=== PATIENT | female | born 1980 | race African-American/Black ===

== ENCOUNTER 2018-07-18 06:13 | Emergency (ER) | payer OTHER ==
--- NOTE | 2018-07-18 06:39 | ED Physician Documentation ---
PD HPI ABD PAIN - Stated complaint Stated Complaint: ABD CRAMPING/NAUSEA/VOMITING - Chief complaint Chief Complaint: Abd Pain - History obtained from History obtained from: Patient - History of Present Illness Timing - onset: Yesterday Timing - details: Abrupt onset, Waxing and waning, Still present in ED Pain level max: 10 Pain level now: 10 Quality: Cramping, Sharp Location: RLQ, Suprapubic Radiation: Other (none) Improved by: Other (nothing) Worsened by: Other (nothing) Associated symptoms: Nausea, Dysuria. No: Diarrhea, Constipation, Hematuria, Vaginal dc Similar symptoms before: Has not had sx before Recently seen: Not recently seen Review of Systems Ten Systems: 10 systems reviewed and negative Constitutional: reports: Chills Cardiac: denies: Chest pain / pressure Respiratory: denies: Dyspnea GI: reports: Abdominal Pain, Nausea. denies: Abdominal Swelling, Vomiting (denies vomiting food; states just wretching), Constipation, Diarrhea, Hematemesis : reports: Dysuria (pressure with urination), LMP (07/09/18). denies: Frequency, Hesitancy, Hematuria, Discharge Musculoskeletal: denies: Back pain PD PAST MEDICAL HISTORY - Past Medical History Cardiovascular: None Endocrine/Autoimmune: None GI: None [employer]: Ovarian cysts - Past Surgical History Past Surgical History: Yes /[employer]: Other (ovarian cyst removed (site unknown)) - Present Medications Home Medications: Ambulatory Orders Medication Instructions Recorded Confirmed Nitrofurantoin [Macrobid] 100 mg PO BID #14 capsule 07/18/18 Phenazopyridine [Pyridium] 100 mg PO TID #6 tablet 07/18/18 - Allergies Allergies/Adverse Reactions: Allergies Allergy/AdvReac Type Severity Reaction Status Date / Time cephalexin [From Keflex] Allergy Hives Verified 07/18/18 06:26 iodine Allergy Hives Verified 07/18/18 06:26 Penicillins Allergy Hives Verified 07/18/18 06:26 Sulfa (Sulfonamide Allergy Hives Verified 07/18/18 06:26 Antibiotics) acetaminophen [From Vicodin] AdvReac Nausea Verified 07/18/18 06:26 diphenhydramine AdvReac Nausea Verified 07/18/18 06:26 hydrocodone [From Vicodin] AdvReac Nausea Verified 07/18/18 06:26 - Living Situation Living Situation: reports: With family Living Arrangement: reports: At home - Social History Does the pt smoke?: No Smoking Status: Never smoker Does the pt drink ETOH?: No Does the pt have substance abuse?: No - Immunizations Immunizations are current?: Yes PD ED PE NORMAL - Vitals Vital signs reviewed: Yes - General General: Alert and oriented X 3, No acute distress, Well developed/nourished, Other (Pt intermittently moans when her pain comes lasting a second or so. Pt intermittently spitting clear saliva.) - HEENT HEENT: Moist mucous membranes - Neck Neck: Supple, no meningeal sign - Cardiac Cardiac: RRR, No murmur - Respiratory Respiratory: No respiratory distress, Clear bilaterally - Abdomen Abdomen: Normal bowel sounds, Soft, Non tender (tender to palpation of RLQ and suprapubic areas. No rebound. No guarding.), Non distended, No organomegaly - Back Back: No CVA TTP - Derm Derm: Normal color, Warm and dry - Extremities Extremities: No deformity - Neuro Neuro: Alert and oriented X 3 - Psych Psych: Normal mood, Normal affect Results - Vitals Vitals: Vital Signs - 24 hr 07/18/18 06:22 Temperature 36.8 C Heart Rate 94 Respiratory 18 Rate Blood Pressure 113/72 O2 Saturation 99 Oxygen O2 Source Room air PD MEDICAL DECISION MAKING - ED course Complexity details: reviewed results, re-evaluated patient, considered differential (UTI, appendicitis, ovarian cyst, ovarian torsion), d/w patient (Pt states feels better after zofran and toradol. Informed of CT scan results and labs which includes a UTI.) - Sepsis Event Vital Signs: Vital Signs - 24 hr 07/18/18 06:22 Temperature 36.8 C Heart Rate 94 Respiratory 18 Rate Blood Pressure 113/72 O2 Saturation 99 Oxygen O2 Source Room air Departure - Departure Disposition: 01 Home, Self Care Clinical Impression: Abdominal pain Qualifiers: Abdominal location: lower abdomen, unspecified Qualified Code(s): R10.30 - Lower abdominal pain, unspecified Urinary tract infection Qualifiers: Urinary tract infection type: acute cystitis Hematuria presence: without hematuria Qualified Code(s): N30.00 - Acute cystitis without hematuria Condition: Good Instructions: ED UTI Cystitis Female, Abdominal Pain Follow-Up: Provider,Other [Primary Care Provider] - Prescriptions: Nitrofurantoin [Macrobid] 100 mg PO BID #14 capsule Phenazopyridine [Pyridium] 100 mg PO TID #6 tablet Comments: Drink lots of water. Take the macrobid and pyridium as prescribed. If worse return to the E.R[facility]
[2018-07-18 06:41] LABS: BASOPHILS # (AUTO) 0.1 10^3/uL (0.0-0.1); BASOPHILS % (AUTO) 0.4 %; EOSINOPHILS # (AUTO) 0.1 10^3/uL (0.0-0.7); EOSINOPHILS % (AUTO) 0.8 %; HGB - HEMOGLOBIN 12.4 g/dL (12.0-16.0); LYMPHOCYTES # (AUTO) 1.9 10^3/uL (1.5-3.5); LYMPHOCYTES % (AUTO) 12.9 %; MEAN CORPUSCULAR HEMOGLOBIN 29.4 pg (27.0-31.0); MEAN CORPUSCULAR HGB CONC 34.6 g/dL (32.0-36.0); MEAN PLATELET VOLUME 9.3 fL (7.9-10.8); MONOCYTES # (AUTO) 0.7 10^3/uL (0.0-1.0); MONOCYTES % (AUTO) 4.5 %; NEUTROPHILS # (AUTO) 12.2 10^3/uL (1.5-6.6); NEUTROPHILS % (AUTO) 81.4 %; PLT - PLATELET COUNT 186 10^3/uL (130-450); RED BLOOD COUNT 4.22 10^6/uL (4.20-5.40); RED CELL DISTRIBUTION WIDTH 14.6 % (12.0-15.0); WHITE BLOOD COUNT 14.9 x10^3/uL (4.8-10.8)
[2018-07-18 06:45] LABS: BILIRUBIN,URINE NEGATIVE (NEGATIVE); GLUCOSE, URINE (UA) NEGATIVE (NEGATIVE); KETONES,URINE (UA) NEGATIVE (NEGATIVE); LEUKOCYTE ESTERASE, URINE SMALL (NEGATIVE); NITRITE,URINE POSITIVE (NEGATIVE); OCCULT BLOOD,URINE MODERATE (NEGATIVE); PH,URINE 6.5 PH (5.0-7.5); PROTEIN,URINE 100 mg/dL (NEGATIVE); UROBILINOGEN,URINE 0.2 (NORMAL) E.U./dL (NORMAL)
[2018-07-18 06:49] LABS: CLARITY,URINE CLOUDY (CLEAR); HCG UR QUAL NEGATIVE
[2018-07-18] MEDS ORDERED: ONDANSETRON 4 MG/2 ML VIAL IVP STA (06:51)
[2018-07-18] MEDS ORDERED: SODIUM CHLORIDE 0.9% 1,000 ML IV ONE (06:51)
[2018-07-18 06:54] LABS: ALBUMIN 4.3 g/dL (3.2-5.5); ALBUMIN/GLOBULIN RATIO 1.3 (1.0-2.2); BILIRUBIN,TOTAL 0.7 mg/dL (0.2-1.0); CREATININE 0.8 mg/dL (0.4-1.0); TOTAL PROTEIN 7.7 g/dL (6.7-8.2)
[2018-07-18 07:01] LABS: SQUAMOUS EPITHELIAL CELL,UR FEW Squamous (<= Few)
[2018-07-18 07:02] LABS: BACTERIA,URINE Few /HPF (None Seen)
[2018-07-18] MEDS ORDERED: KETOROLAC 30 MG/ML VIAL IVP STA (07:12)
--- NOTE | 2018-07-18 08:00 | CT Report ---
Reason: RLQ SUPRAPUBIC PAIN Procedure Date: 07/18/2018 Accession Number: [id number] / [id number] Procedure: CT - Abdomen/Pelvis W/O CPT Code: FULL RESULT: EXAM: CT ABDOMEN AND PELVIS (CT KUB) EXAM DATE: 07/18/2018 07:44 AM. CLINICAL HISTORY: RLQ SUPRAPUBIC PAIN. COMPARISONS: None. TECHNIQUE: Routine axial helical CT imaging was performed through the abdomen and pelvis without IV contrast. Reconstructions: Coronal and sagittal. In accordance with CT protocol optimization, one or more of the following dose reduction techniques were utilized for this exam: automated exposure control, adjustment of mA and/or KV based on patient size, or use of iterative reconstructive technique. FINDINGS: Lung Bases: Unremarkable. Right Kidney/Ureter: There is a 2 mm nonobstructing calyceal calculus in the interpolar region (series 3 image 29). No hydronephrosis or hydroureter. No perinephric fat stranding. Left Kidney/Ureter: No stones, hydronephrosis, or hydroureter. No perinephric fat stranding. Other Solid Organs: There is a 6 mm ovoid hypodense lesion in the right lobe of the liver which is too small to definitely characterize, but most likely represents a cyst (series 3 image 30). Noncontrast images of the solid organs are otherwise grossly unremarkable. Gallbladder/Bile Ducts: Unremarkable. Peritoneal Cavity: No free fluid, free air or priscilla adenopathy. Bowel is grossly unremarkable. The appendix is partially visualized and appears normal. Pelvic Organs: There are several phleboliths in the pelvis. No bladder stones. The bladder wall appears mildly thickened, although this may be due to lack of distention. Noncontrast images of the visualized pelvic organs are otherwise unremarkable. Vasculature: Unremarkable. Other: None. IMPRESSION: 1. There is a 2 mm nonobstructing calyceal calculus in the right kidney. No hydronephrosis or hydroureter. 2. No left urinary tract stones or obstruction. 3. Possible mild bladder wall thickening, although this may be exaggerated by lack of bladder distention. [facility]
[2018-07-18 09:22] VITALS: BP 103/75
== END 2018-07-18 09:39 | disposition home or self-care (01) ==
LOC: ED 06:13
DX: N30.00 Acute cystitis without hematuria (principal); R10.30 Lower abdominal pain, unspecified; N20.0 Calculus of kidney
CPT/HCPCS: 36415; 74176; 80053; 81001; 81003; 81025; 83690; 85025; 87086; 87181; 96361; 96374; 96375; 99283; 99284